=== PATIENT | female | born 1965 | race Caucasian/White ===

== ENCOUNTER 2017-06-24 08:39 | Outpatient (RCR) | payer OTHER, MEDICAID ==
[2017-05-19 14:38] LABS: BASOPHILS # (AUTO) 0.1 10^3/uL (0.0-0.1); BASOPHILS % (AUTO) 1 % (0-10); EOSINOPHILS # (AUTO) 0.5 10^3/uL (0.0-0.3); EOSINOPHILS % (AUTO) 6 % (0-10); LYMPHOCYTES # (AUTO) 1.7 X 10^3 (1.0-4.0); LYMPHOCYTES % (AUTO) 21 % (12-44); MEAN CORPUSCULAR HEMOGLOBIN 28 PG (25-34); MEAN CORPUSCULAR HGB CONC 31 G/DL (32-36); MEAN CORPUSCULAR VOLUME 90 FL (80-99); MEAN PLATELET VOLUME 11.3 FL (7.4-10.4); MONOCYTES # (AUTO) 0.6 X 10^3 (0.0-1.0); MONOCYTES % (AUTO) 7 % (0-12); NEUTROPHILS # (AUTO) 5.3 X 10^3 (1.8-7.8); NEUTROPHILS % (AUTO) 65 % (42-75); PLATELET COUNT 269 10^3/uL (130-400); RED BLOOD COUNT 3.97 10^6/uL (4.35-5.85); RED CELL DISTRIBUTION WIDTH 15.2 % (10.0-14.5); WHITE BLOOD COUNT 8.1 10^3/uL (4.3-11.0)
[2017-05-19 15:05] LABS: ALBUMIN 4.1 GM/DL (3.2-4.5); BILIRUBIN,TOTAL 0.3 MG/DL (0.1-1.0); CALCIUM 8.8 MG/DL (8.5-10.1); CREATININE SERUM 1.38 MG/DL (0.60-1.30); POTASSIUM 4.4 MMOL/L (3.6-5.0); TOTAL PROTEIN 6.9 GM/DL (6.4-8.2)
[2017-05-19 15:19] LABS: PEP REPORT SEE PATH REPORT
[2017-05-19 15:53] LABS: THYROID STIMULATING HORMONE 2.58 UIU/ML (0.35-4.94)
[2017-05-19 16:55] LABS: %SAT TOTAL IRON BINDING CAPIC 8 % (15-50); TIBC 616 ug/dL (280-380)
[2017-05-20 07:55] LABS: UIBC 567 ug/dL
[2017-05-22 11:19] LABS: CLIN PATHOLOGY REPORT FOOTNOTE; SERUM PROTEIN ELEC DETAIL L-17-0008910
[2017-05-24 07:38] LABS: IMMUNOFIX PATH REPORT NUMBER Complete (Complete)
[2017-06-19 12:52] LABS: BASOPHILS # (AUTO) 0.1 10^3/uL (0.0-0.1); BASOPHILS % (AUTO) 2 % (0-10); EOSINOPHILS # (AUTO) 0.5 10^3/uL (0.0-0.3); EOSINOPHILS % (AUTO) 7 % (0-10); LYMPHOCYTES # (AUTO) 1.6 X 10^3 (1.0-4.0); LYMPHOCYTES % (AUTO) 21 % (12-44); MEAN CORPUSCULAR HEMOGLOBIN 30 PG (25-34); MEAN CORPUSCULAR HGB CONC 31 G/DL (32-36); MEAN CORPUSCULAR VOLUME 95 FL (80-99); MEAN PLATELET VOLUME 12.1 FL (7.4-10.4); MONOCYTES # (AUTO) 0.5 X 10^3 (0.0-1.0); MONOCYTES % (AUTO) 6 % (0-12); NEUTROPHILS # (AUTO) 4.8 X 10^3 (1.8-7.8); NEUTROPHILS % (AUTO) 64 % (42-75); PLATELET COUNT 228 10^3/uL (130-400); RETICULOCYTE % 1.81 % (0.50-2.40); WHITE BLOOD COUNT 7.4 10^3/uL (4.3-11.0)
[2017-06-19 13:34] LABS: ALBUMIN 4.2 GM/DL (3.2-4.5); BILIRUBIN,TOTAL 0.3 MG/DL (0.1-1.0); CREATININE SERUM 1.14 MG/DL (0.60-1.30); POTASSIUM 4.9 MMOL/L (3.6-5.0); TOTAL PROTEIN 6.7 GM/DL (6.4-8.2)
[~2017-06-24 08:39] MED LIST: FERRIC CARBOXYMALTOSE (CANCER) 750 MG in NS (IVPB) CANCER CENTER 250 ML IV SCH
== END 2017-08-09 | disposition home or self-care (01) ==
LOC: ONC 08:39
PROVIDERS: ATTEND Internal Medicine Hematology & Oncology
DX: D50.9 Iron deficiency anemia, unspecified (principal)
CPT/HCPCS: 36415; 80053; 82728; 83540; 83883; 84155; 84165; 84443; 85025; 85045; 86334; 96365; 99213; 99214

== ENCOUNTER 2017-10-13 12:06 | Outpatient (RCR) | payer OTHER, MEDICAID ==
[2017-10-13 12:22] LABS: BASOPHILS # (AUTO) 0.1 10^3/uL (0.0-0.1); BASOPHILS % (AUTO) 1 % (0-10); EOSINOPHILS # (AUTO) 0.6 10^3/uL (0.0-0.3); EOSINOPHILS % (AUTO) 9 % (0-10); HEMATOCRIT 38 % (35-52); HEMOGLOBIN 12.5 G/DL (11.5-16.0); LYMPHOCYTES # (AUTO) 1.8 X 10^3 (1.0-4.0); LYMPHOCYTES % (AUTO) 25 % (12-44); MEAN CORPUSCULAR HEMOGLOBIN 33 PG (25-34); MEAN CORPUSCULAR HGB CONC 33 G/DL (32-36); MEAN CORPUSCULAR VOLUME 101 FL (80-99); MEAN PLATELET VOLUME 11.8 FL (7.4-10.4); MONOCYTES # (AUTO) 0.4 X 10^3 (0.0-1.0); MONOCYTES % (AUTO) 6 % (0-12); NEUTROPHILS # (AUTO) 4.2 X 10^3 (1.8-7.8); NEUTROPHILS % (AUTO) 59 % (42-75); PLATELET COUNT 214 10^3/uL (130-400); RED BLOOD COUNT 3.81 10^6/uL (4.35-5.85); RED CELL DISTRIBUTION WIDTH 13.1 % (10.0-14.5); WHITE BLOOD COUNT 7.1 10^3/uL (4.3-11.0)
[2017-10-13 12:41] LABS: ALBUMIN 4.1 GM/DL (3.2-4.5); BILIRUBIN,TOTAL 0.3 MG/DL (0.1-1.0); CALCIUM 8.6 MG/DL (8.5-10.1); CREATININE SERUM 1.34 MG/DL (0.60-1.30); POTASSIUM 4.3 MMOL/L (3.6-5.0); TOTAL PROTEIN 6.8 GM/DL (6.4-8.2)
== END 2018-01-11 | disposition home or self-care (01) ==
LOC: ONC 12:06
PROVIDERS: ATTEND Internal Medicine Hematology & Oncology
DX: D50.9 Iron deficiency anemia, unspecified (principal)
CPT/HCPCS: 36415; 80053; 82728; 85025; 99213

== ENCOUNTER 2018-02-12 12:41 | Outpatient (RCR) | payer MEDICARE, MEDICAID ==
[2018-02-12 12:54] LABS: BASOPHILS # (AUTO) 0.1 10^3/uL (0.0-0.1); BASOPHILS % (AUTO) 1 % (0-10); EOSINOPHILS % (AUTO) 11 % (0-10); HEMATOCRIT 37 % (35-52); HEMOGLOBIN 12.4 G/DL (11.5-16.0); LYMPHOCYTES % (AUTO) 22 % (12-44); MEAN CORPUSCULAR HEMOGLOBIN 33 PG (25-34); MEAN CORPUSCULAR HGB CONC 34 G/DL (32-36); MEAN CORPUSCULAR VOLUME 98 FL (80-99); MONOCYTES # (AUTO) 0.5 X 10^3 (0.0-1.0); MONOCYTES % (AUTO) 5 % (0-12); NEUTROPHILS # (AUTO) 5.5 X 10^3 (1.8-7.8); NEUTROPHILS % (AUTO) 61 % (42-75); PLATELET COUNT 177 10^3/uL (130-400); RED BLOOD COUNT 3.73 10^6/uL (4.35-5.85); RED CELL DISTRIBUTION WIDTH 13.5 % (10.0-14.5)
[2018-02-12 13:10] LABS: ALBUMIN 4.2 GM/DL (3.2-4.5); BILIRUBIN,TOTAL 0.3 MG/DL (0.1-1.0); CALCIUM 8.9 MG/DL (8.5-10.1); CREATININE SERUM 1.13 MG/DL (0.60-1.30); POTASSIUM 4.1 MMOL/L (3.6-5.0); TOTAL PROTEIN 6.6 GM/DL (6.4-8.2)
== END 2018-05-13 | disposition home or self-care (01) ==
LOC: ONC 12:41
PROVIDERS: ATTEND Internal Medicine Hematology & Oncology
DX: D50.9 Iron deficiency anemia, unspecified (principal); E11.22 Type 2 diabetes mellitus with diabetic chronic kidney disease; N18.3 Chronic kidney disease, stage 3 (moderate); E78.5 Hyperlipidemia, unspecified; E55.9 Vitamin D deficiency, unspecified; K21.9 Gastro-esophageal reflux disease without esophagitis; K59.00 Constipation, unspecified; Z79.84 Long term (current) use of oral hypoglycemic drugs; Z79.899 Other long term (current) drug therapy
CPT/HCPCS: 36415; 80053; 82728; 85025; 99213

== ENCOUNTER 2018-06-18 12:46 | Outpatient (RCR) | payer MEDICARE, MEDICAID ==
[2018-06-18 14:08] LABS: BASOPHILS # (AUTO) 0.1 10^3/uL (0.0-0.1); BASOPHILS % (AUTO) 1 % (0-10); EOSINOPHILS # (AUTO) 0.8 10^3/uL (0.0-0.3); EOSINOPHILS % (AUTO) 9 % (0-10); HEMATOCRIT 40 % (35-52); HEMOGLOBIN 13.4 G/DL (11.5-16.0); LYMPHOCYTES % (AUTO) 21 % (12-44); MEAN CORPUSCULAR HEMOGLOBIN 33 PG (25-34); MEAN CORPUSCULAR HGB CONC 33 G/DL (32-36); MEAN CORPUSCULAR VOLUME 98 FL (80-99); MEAN PLATELET VOLUME 12.2 FL (7.4-10.4); MONOCYTES # (AUTO) 0.5 X 10^3 (0.0-1.0); MONOCYTES % (AUTO) 6 % (0-12); NEUTROPHILS # (AUTO) 6.2 X 10^3 (1.8-7.8); NEUTROPHILS % (AUTO) 64 % (42-75); PLATELET COUNT 215 10^3/uL (130-400); RED BLOOD COUNT 4.09 10^6/uL (4.35-5.85); RED CELL DISTRIBUTION WIDTH 13.9 % (10.0-14.5); WHITE BLOOD COUNT 9.7 10^3/uL (4.3-11.0)
[2018-06-18 14:33] LABS: ALBUMIN 4.4 GM/DL (3.2-4.5); BILIRUBIN,TOTAL 0.3 MG/DL (0.1-1.0); CALCIUM 9.2 MG/DL (8.5-10.1); CREATININE SERUM 1.04 MG/DL (0.60-1.30); POTASSIUM 4.3 MMOL/L (3.6-5.0); TOTAL PROTEIN 6.8 GM/DL (6.4-8.2)
== END 2018-07-10 | disposition home or self-care (01) ==
LOC: ONC 12:46
PROVIDERS: ATTEND Internal Medicine Hematology & Oncology
DX: D50.9 Iron deficiency anemia, unspecified (principal); E11.22 Type 2 diabetes mellitus with diabetic chronic kidney disease; N18.3 Chronic kidney disease, stage 3 (moderate); E78.5 Hyperlipidemia, unspecified; E55.9 Vitamin D deficiency, unspecified; K21.9 Gastro-esophageal reflux disease without esophagitis; K59.00 Constipation, unspecified; Z79.84 Long term (current) use of oral hypoglycemic drugs; Z79.899 Other long term (current) drug therapy
CPT/HCPCS: 80053; 82728; 85025; 99213

== ENCOUNTER 2018-09-17 12:57 | Outpatient (RCR) | payer MEDICARE, MEDICAID ==
[2018-09-17 13:09] LABS: BASOPHILS # (AUTO) 0.1 10^3/uL (0.0-0.1); BASOPHILS % (AUTO) 1 % (0-10); EOSINOPHILS # (AUTO) 0.7 10^3/uL (0.0-0.3); EOSINOPHILS % (AUTO) 6 % (0-10); HEMATOCRIT 41 % (35-52); HEMOGLOBIN 13.8 G/DL (11.5-16.0); LYMPHOCYTES # (AUTO) 2.9 X 10^3 (1.0-4.0); LYMPHOCYTES % (AUTO) 26 % (12-44); MEAN CORPUSCULAR HEMOGLOBIN 33 PG (25-34); MEAN CORPUSCULAR HGB CONC 33 G/DL (32-36); MEAN CORPUSCULAR VOLUME 98 FL (80-99); MEAN PLATELET VOLUME 11.3 FL (7.4-10.4); MONOCYTES # (AUTO) 0.8 X 10^3 (0.0-1.0); MONOCYTES % (AUTO) 7 % (0-12); NEUTROPHILS # (AUTO) 6.5 X 10^3 (1.8-7.8); NEUTROPHILS % (AUTO) 60 % (42-75); PLATELET COUNT 217 10^3/uL (130-400); RED CELL DISTRIBUTION WIDTH 13.9 % (10.0-14.5); WHITE BLOOD COUNT 10.9 10^3/uL (4.3-11.0)
[2018-09-17 13:30] LABS: ALBUMIN 4.5 GM/DL (3.2-4.5); BILIRUBIN,TOTAL 0.2 MG/DL (0.1-1.0); CALCIUM 9.5 MG/DL (8.5-10.1); CREATININE SERUM 1.06 MG/DL (0.60-1.30); POTASSIUM 4.2 MMOL/L (3.6-5.0); TOTAL PROTEIN 7.4 GM/DL (6.4-8.2)
== END 2018-12-16 | disposition home or self-care (01) ==
LOC: ONC 12:57
PROVIDERS: ATTEND Internal Medicine Hematology & Oncology
DX: D50.9 Iron deficiency anemia, unspecified (principal); E11.22 Type 2 diabetes mellitus with diabetic chronic kidney disease; N18.3 Chronic kidney disease, stage 3 (moderate); E78.5 Hyperlipidemia, unspecified; E55.9 Vitamin D deficiency, unspecified; K21.9 Gastro-esophageal reflux disease without esophagitis; K59.00 Constipation, unspecified; Z79.84 Long term (current) use of oral hypoglycemic drugs; Z79.899 Other long term (current) drug therapy
CPT/HCPCS: 36415; 80053; 82728; 85025; 99213

== ENCOUNTER 2020-11-22 09:48 | Emergency (ER) | payer MEDICARE, MEDICAID ==
[~2020-11-22] VITALS: Ht 162 cm; Wt 99.7 kg
[2020-11-22 10:16] VITALS: BP 140/90
--- NOTE | 2020-11-22 10:23 | NUR ---
DPOA - patient's mother - Brittney wilkinson [phone]. Per Brittney, patient's BS fasting highest has been 122, patient has been running low grade temp, has not been drinking much and has had poor appetite. Pt has been taking immodium and pepto bismol for diarrhea. Pt has history of latent TB and was on isonazidand pyridoxine for 9 months started 11/16/18, discontinued on 08/15.
[2020-11-22] MEDS ORDERED: FAMOTIDINE 20MG/2ML IV (PEPCID) IV STA (10:36)
--- NOTE | 2020-11-22 10:44 | ED Abdominal Pain ---
General Chief Complaint: Abdominal/GI Problems Stated Complaint: COVID+, GI ISSUES Nursing Triage Note: Pt reports testing positive for COVID on 11/13. Pt c/o diarrhea and abd pain, some SOA. Pt reports minimal appetite and stating she think she may be dehydrated. Pt is type 2 diabetic. Sepsis Screen: Possible Severe Sepsis Risk Source of Information: Patient, Family (mom dpoa) Exam Limitations: No Limitations History of Present Illness Date Seen by Provider: Nov 22, 2020 Time Seen by Provider: 10:20 Initial Comments Patient presents ER by private conveyance from home with chief complaint she is having some nausea vomiting and upset stomach with epigastric abdominal discomfort. She has had cholecystectomy appendectomy hysterectomy. She was diagnosed with Covid [address] Garcia. She has not been anywhere since then. She does not have anything for nausea. She has her mother who is also her DPOA and caregiver. She has had fevers but no diarrhea. Poor appetite and poor fluid intake for the past several days. Not a smoker. No history of lung disease. Mild shortness of air. She does wear a CPAP for MATIAS at night. No oxygen. Allergies and Home Medications Allergies Coded Allergies: NSAIDS (Non-Steroidal Anti-Inflamma (Verified Allergy, Unknown, 11/22/20) Penicillins (Verified Allergy, Unknown, 11/22/20) Sulfa (Sulfonamide Antibiotics) (Verified Allergy, Unknown, 11/22/20) azithromycin (Verified Allergy, Unknown, 11/22/20) fluconazole (Verified Allergy, Unknown, 11/22/20) Home Medications Dexamethasone 6 Mg Tablet, 6 MG PO DAILY Prescribed by: ERIKA GRIFFITHS on 11/22/20 1245 Ondansetron 4 Mg Tab.rapdis, 4-8 MG PO Q6H PRN for NAUSEA/VOMITING Prescribed by: ERIKA GRIFFITHS on 11/22/20 1245 Pantoprazole Sodium 40 Mg Tablet.dr, 40 MG PO DAILY Prescribed by: ERIKA GRIFFITHS on 11/22/20 1245 Promethazine HCl 25 Mg Tablet, 25 MG PO Q6H PRN for NAUSEA/VOMITING Prescribed by: ERIKA GRIFFITHS on 11/22/20 1245 Sucralfate 1 Gm Tablet, 1 GM PO QIDACHS Prescribed by: ERIKA GRIFFITHS on 11/22/20 1245 [oxygen] , 2 L NA DAILY PRN for as directed 2 to 6 L by nasal cannula as necessary to keep Sp02 above 94% Prescribed by: ERIKA GRIFFITHS on 11/22/20 1252 Patient Home Medication List Home Medication List Reviewed: Yes Review of Systems Review of Systems Constitutional: chills, fever, malaise, weakness EENTM: No Blurred Vision, No Double Vision Respiratory: Cough (Nonproductive), Shortness of Air; Denies Wheezing Cardiovascular: Denies Chest Pain, Denies Lightheadedness Gastrointestinal: See HPI, Abdominal Pain (Epigastric); Denies Constipated, Denies Diarrhea; Nausea, Poor Appetite, Poor Fluid Intake, Vomiting Genitourinary: Denies Burning, Denies Discharge Musculoskeletal: No back pain, No joint pain Skin: No pruritus, No rash Psychiatric/Neurological: Denies Anxiety, Denies Depressed All Other Systems Reviewed Negative Unless Noted: Yes Past Rwogesk-Thwqvt-Tyhkcg Hx Patient Social History Alcohol Use: Denies Use Smoking Status: Never a Smoker Recent Infectious Disease Expo: No Recent Hopitalizations: No Seasonal Allergies Seasonal Allergies: No Past Medical History Surgeries: Yes (cleft repair, bilat knee replacement, carpal tunnel ) Appendectomy, Gallbladder, Hysterectomy, Joint Replacement, Orthopedic Respiratory: Yes Sleep Apnea, Tuberculosis Currently Using CPAP: Yes (at night) Cardiac: Yes High Cholesterol, Hypertension Neurological: No Genitourinary: No Gastrointestinal: Yes Gastroesophageal Reflux, Irritable Bowel Musculoskeletal: No Endocrine: Yes Diabetes, Non-Insulin dep HEENT: No Cancer: No Psychosocial: No Integumentary: No Blood Disorders: No Physical Exam Vital Signs Vital Signs - First Documented 11/22/20 10:16 Temp 37.9 Pulse 112 Resp 22 B/P (MAP) 140/90 (107) Pulse Ox 90 O2 Delivery Room Air Capillary Refill : Less Than 3 Seconds Height/Weight/BMI Height: '" Weight: lbs. oz. kg; 37.00 BMI Method: General Appearance: WD/WN, mild distress HEENT: PERRL/EOMI, normal ENT inspection, TMs normal; No pharynx normal (Dry oral mucosa) Neck: non-tender, full range of motion, normal inspection Respiratory: lungs clear, normal breath sounds, no accessory muscle use, respiratory distress (Mild to moderate with oxygen sats 89% after transferring from wheelchair to bed on room air.) Gastrointestinal: normal bowel sounds, soft, tenderness (Epigastric without Pereira sign, McBurney's point tenderness, mesenteric signs.) Neurologic/Psychiatric: alert, normal mood/affect, oriented x 3 Skin: normal color, warm/dry Progress/Results/Core Measures Results/Orders Lab Results Laboratory Tests Test 11/22/20 10:40 11/22/20 11:22 11/22/20 11:40 Range/Units White Blood Count 5.7 4.3-11.0 10^3/uL Red Blood Count 3.85 3.80-5.11 10^6/uL Hemoglobin 11.8 11.5-16.0 g/dL Hematocrit 35 35-52 % Mean Corpuscular Volume 91 80-99 fL Mean Corpuscular Hemoglobin 31 25-34 pg Mean Corpuscular Hemoglobin Concent 34 32-36 g/dL Red Cell Distribution Width 15.2 H 10.0-14.5 % Platelet Count 171 130-400 10^3/uL Mean Platelet Volume 12.0 9.0-12.2 fL Immature Granulocyte % (Auto) 1 % Neutrophils (%) (Auto) 81 H 42-75 % Lymphocytes (%) (Auto) 10 L 12-44 % Monocytes (%) (Auto) 7 0-12 % Eosinophils (%) (Auto) 0 0-10 % Basophils (%) (Auto) 0 0-10 % Neutrophils # (Auto) 4.6 1.8-7.8 10^3/uL Lymphocytes # (Auto) 0.6 L 1.0-4.0 10^3/uL Monocytes # (Auto) 0.4 0.0-1.0 10^3/uL Eosinophils # (Auto) 0.0 0.0-0.3 10^3/uL Basophils # (Auto) 0.0 0.0-0.1 10^3/uL Immature Granulocyte # (Auto) 0.1 0.0-0.1 10^3/uL Sodium Level 136 135-145 MMOL/L Potassium Level 3.9 3.6-5.0 MMOL/L Chloride Level 98 98-107 MMOL/L Carbon Dioxide Level 23 21-32 MMOL/L Anion Gap 15 H 5-14 MMOL/L Blood Urea Nitrogen 23 H 7-18 MG/DL Creatinine 1.32 H 0.60-1.30 MG/DL Estimat Glomerular Filtration Rate 42 BUN/Creatinine Ratio 17 Glucose Level 130 H 70-105 MG/DL Calcium Level 7.3 L 8.5-10.1 MG/DL Corrected Calcium 7.4 L 8.5-10.1 MG/DL Total Bilirubin 0.3 0.1-1.0 MG/DL Aspartate Amino Transf (AST/SGOT) 17 5-34 U/L Alanine Aminotransferase (ALT/SGPT) 16 0-55 U/L Alkaline Phosphatase 83 40-136 U/L C-Reactive Protein High Sensitivity 4.90 H 0.00-0.50 MG/DL Total Protein 6.9 6.4-8.2 GM/DL Albumin 3.9 3.2-4.5 GM/DL Lipase 17 8-78 U/L Procalcitonin 0.12 H <0.10 NG/ML Blood Gas Puncture Site LEFT RAD Blood Gas Patient Temperature 37.9 Arterial Blood pH 7.45 H 7.37-7.43 Arterial Blood Partial Pressure CO2 37 35-45 MMHG Arterial Blood Partial Pressure O2 71 L 79-93 MMHG Arterial Blood HCO3 25 23-27 MMOL/L Arterial Blood Total CO2 38.3 H 21.0-31.0 MMOL/L Arterial Blood Oxygen Saturation 95 94-100 % Arterial Blood Base Excess 1.2 -2.5-2.5 MMOL/L Cullen Test YES-POS Blood Gas Ventilator Setting NO Blood Gas Inspired Oxygen 3 L Urine Color YELLOW Urine Clarity CLEAR Urine pH 6.0 5-9 Urine Specific Mitchell[place] 1.015 L 1.016-1.022 Urine Protein TRACE H NEGATIVE Urine Glucose (UA) NEGATIVE NEGATIVE Urine Ketones NEGATIVE NEGATIVE Urine Nitrite NEGATIVE NEGATIVE Urine Bilirubin NEGATIVE NEGATIVE Urine Urobilinogen 0.2 < = 1.0 MG/DL Urine Leukocyte Esterase NEGATIVE NEGATIVE Urine RBC (Auto) NEGATIVE NEGATIVE Urine RBC NONE /HPF Urine WBC 0-2 /HPF Urine Squamous Epithelial Cells 2-5 /HPF Urine Crystals NONE /LPF Urine Bacteria TRACE /HPF Urine Casts PRESENT /LPF Urine Hyaline Casts 0-2 H /LPF Urine Mucus NEGATIVE /LPF Urine Culture Indicated NO My Orders Orders - ERIKA GRIFFITHS Covid-19 External Lab Results (11/22/20 10:32) Cbc With Automated Diff (11/22/20 10:36) Comprehensive Metabolic Panel (11/22/20 10:36) Hs C Reactive Protein (11/22/20 10:36) Lipase (11/22/20 10:36) Procalcitonin (Pct) (11/22/20 10:36) Abg Ph (11/22/20 10:36) Lactated Ringers (Lr 1000 Ml Iv Solution (11/22/20 10:45) Ondansetron Injection (Zofran Injectio (11/22/20 10:45) Lidocaine 2% Viscous 15 Ml (Xylocaine Vi (11/22/20 10:45) Antacid Suspension (Mylanta Suspension (11/22/20 10:45) Famotidine Injection (Pepcid Injection) (11/22/20 10:36) Ua Culture If Indicated (11/22/20 10:36) Lactated Ringers (Lr 1000 Ml Iv Solution (11/22/20 10:45) Arterial Blood Gas (11/22/20 11:32) Dexamethasone Injection (Decadron Inje (11/22/20 11:45) Chest 1 View, Ap/Pa Only (11/22/20 12:25) Lactated Ringers (Lr 1000 Ml Iv Solution (11/22/20 15:30) Cho 75g/M 0snack (21-2400 Arturo) (11/22/20 Lunch) Medications Given in ED Current Medications Medications Dose Ordered Sig/Norman Route Start Time Stop Time Status Last Admin Dose Admin Al Hydrox/Mg Hydrox/Simethicone 30 ml ONCE ONCE PO 11/22/20 10:45 11/22/20 10:46 DC 11/22/20 10:58 30 ML Lactated Ringer's 1,000 ml @ 0 mls/hr Q0M ONCE IV 11/22/20 10:45 11/22/20 10:46 DC 11/22/20 11:09 999 MLS/HR Lactated Ringer's 1,000 ml @ 0 mls/hr Q0M ONCE IV 11/22/20 10:45 11/22/20 10:46 DC 11/22/20 15:36 999 MLS/HR Lidocaine HCl 15 ml ONCE ONCE PO 11/22/20 10:45 11/22/20 10:46 DC 11/22/20 10:58 15 ML Ondansetron HCl 8 mg ONCE ONCE IVP 11/22/20 10:45 11/22/20 10:46 DC 11/22/20 11:00 8 MG Vital Signs/I&O 11/22/20 10:16 Temp 37.9 Pulse 112 Resp 22 B/P (MAP) 140/90 (107) Pulse Ox 90 O2 Delivery Room Air Blood Pressure Mean: 107 Progress Progress Note #1: Time: 10:43 Progress Note Plan to get her nausea under control gave her 2 L of fluids and a GI cocktail to see if that helps her epigastric pain. She is requiring some oxygen so will put her on 2 L which might help her nausea as well. We will see if we get her qualified for home O2 which should not be difficult since she already has desatted to 89% just transferring. We will get an x-ray and if there is no signs of bacterial pneumonia or other worsening labs then we can send her home with a concentrator. Progress Note #2: Time: 12:29 Progress Note On standing the patient's oxygen sats could easily be brought down to 88% with minimal effort. We gave her a GI cocktail and she said her pain went away. With some nausea medicine her nausea got better. She already has some on dansetron so give her a prescription for some more and try and set her up for outpatient oxygen. She is okay with going home. Discussed the case with her mother who is in agreement with the plan. She is staying in [place] with her parents until her symptoms improve so we will set her up with a local oxygen company. Progress Note #3: Time: 13:42 Progress Note Local O2 company could not use her insurance so we are attempting to use [facility] which should be able to utilize her insurance. Documentation was faxed. Progress Note #4: Time: 14:17 Progress Note Rashad did receive the packet and can probably provide her with a concentrator however they need a few more items faxed to them. These were sent and they said they will call us when they are ready to meet her at the house. Patient is resting comfortably without concern. Progress Note #5: Time: 15:55 Progress Note Rashad advises they will have someone at her house and [place] in 40 minutes. Nursing staff is calling family for a ride home. Diagnostic Imaging Diagonstic Imaging: Xray Plain Films/CT/US/NM/MRI: chest Comments NAME: [facility]LY [facility] REC#: [id number] PT STATUS: REG ER : 1965 PHYSICIAN: ERIKA GRIFFITHS MD ADMIT DATE: 11/22/20/ER Draft Date of Exam:11/22/20 CHEST 1 VIEW, AP/PA ONLY EXAM: CHEST 1 VIEW, AP/PA ONLY INDICATION: Shortness of air. Positive COVID. COMPARISON: None. FINDINGS: Patchy airspace opacities in both lungs, greater on the left. No large pleural effusion or pneumothorax. Normal heart size and central pulmonary vascularity. No acute osseous findings. IMPRESSION: Patchy airspace opacities, greater on the left, compatible with reported COVID diagnosis. Dictated on workstation # [id number] Dict: 11/22/20 1317 Trans: 11/22/20 1320 [id number] Interpreted by: RAMANDEEP DAVIES MD Electronically signed by: Reviewed: Reviewed by Me Departure Impression Primary Impression: COVID-19 Additional Impressions: Gastritis Qualified Codes: K29.00 - Acute gastritis without bleeding Nausea alone Hypoxemia Disposition: HOME, SELF-CARE Condition: Improved Departure-Patient Inst. Decision time for Depature: 12:39 Referrals: PONCE GOULD (PCP/Family) Primary Care Physician Patient Instructions: Gastritis (DC), Coronavirus Disease 2019 (COVID-19) Ove rview, Nausea and Vomiting, Adult ED Add. Discharge Instructions: If you have nausea you may take 1 tablet of ondansetron under the tongue every 6 hours. If it does not help your symptoms in 30 minutes then you may take a second tablet. If you are still having nausea you can use 1 tablet of Phenergan every 6 hours as necessary. This will cause some mild drowsiness. Drink lots of fluids. Obtain a pulse oximeter and to wear oxygen between 2 and 6 L to keep your oxygen saturations consistently above 94%. If your oxygen sats will not stay above 94% despite oxygen then you should return to the nearest ER. Dexamethasone 6 mg daily for 10 days. If you experience belly pain again then you should use Maalox, Tums, Rolaids etc. for symptoms. Pantoprazole 40 mg daily for the next 4 weeks to reduce stomach acid. Sucralfate will help line the stomach and esophagus to protect it so it can heal. 1 tablet Sucralfate 30 minutes prior to meals and at bedtime for 2 weeks. All discharge instructions reviewed with patient and/or family. Voiced understanding. Scripts [oxygen] No Conflict Check 2 L NA DAILY PRN for as directed, #1 EACH 0 Refills 2 to 6 L by nasal cannula as necessary to keep Sp02 above 94% Prov: ERIKA GRIFFITHS 11/22/20 Dexamethasone (Dexamethasone) 6 Mg Tablet 6 MG PO DAILY for 10 Days, #10 TAB 0 Refills Prov: ERIKA GRIFFITHS 11/22/20 Promethazine HCl (Promethazine Tablet) 25 Mg Tablet 25 MG PO Q6H PRN for NAUSEA/VOMITING, #15 TAB 0 Refills Prov: ERIKA GRIFFITHS 11/22/20 Ondansetron (Ondansetron Odt) 4 Mg Tab.rapdis 4-8 MG PO Q6H PRN for NAUSEA/VOMITING, #15 TAB 0 Refills Prov: ERIKA GRIFFITHS 11/22/20 Sucralfate (Carafate) 1 Gm Tablet 1 GM PO QIDACHS for 14 Days, #56 TAB 0 Refills Prov: ERIKA GRIFFITHS 11/22/20 Pantoprazole Sodium (Pantoprazole Sodium) 40 Mg Tablet.dr 40 MG PO DAILY for 30 Days, #30 TAB 0 Refills Prov: ERIKA GRIFFITHS 11/22/20 ERIKA GRIFFITHS Nov 22, 2020 10:44
[2020-11-22] MEDS ORDERED: ANTACID SUSP 30 ML UDC (MYLANTA) PO ONE (10:45)
[2020-11-22] MEDS ORDERED: LIDOCAINE 2% VISCOUS 15 ML UDC PO ONE (10:45)
[2020-11-22] MEDS ORDERED: ONDANSETRON 4 MG/2 ML (SDV) Z0FRAN IVP ONE (10:45)
[2020-11-22] MEDS ORDERED: LACTATED RINGERS 1,000 ML IV ONE ×3 (10:45→15:30)
[2020-11-22 10:56] LABS: BASOPHILS % (AUTO) 0 % (0-10); EOSINOPHILS % (AUTO) 0 % (0-10); HEMATOCRIT 35 % (35-52); HEMOGLOBIN 11.8 g/dL (11.5-16.0); LYMPHOCYTES # (AUTO) 0.6 10^3/uL (1.0-4.0); LYMPHOCYTES % (AUTO) 10 % (12-44); MEAN CORPUSCULAR HEMOGLOBIN 31 pg (25-34); MEAN CORPUSCULAR HGB CONC 34 g/dL (32-36); MEAN CORPUSCULAR VOLUME 91 fL (80-99); MONOCYTES # (AUTO) 0.4 10^3/uL (0.0-1.0); MONOCYTES % (AUTO) 7 % (0-12); NEUTROPHILS # (AUTO) 4.6 10^3/uL (1.8-7.8); NEUTROPHILS % (AUTO) 81 % (42-75); PLATELET COUNT 171 10^3/uL (130-400); WHITE BLOOD COUNT 5.7 10^3/uL (4.3-11.0)
[2020-11-22 11:14] LABS: ALBUMIN 3.9 GM/DL (3.2-4.5); POTASSIUM 3.9 MMOL/L (3.6-5.0)
[2020-11-22 11:15] LABS: CALCIUM 7.3 MG/DL (8.5-10.1)
[2020-11-22 11:16] LABS: TOTAL PROTEIN 6.9 GM/DL (6.4-8.2)
[2020-11-22 11:18] LABS: BILIRUBIN,TOTAL 0.3 MG/DL (0.1-1.0)
[2020-11-22 11:20] LABS: CREATININE SERUM 1.32 MG/DL (0.60-1.30)
[2020-11-22 11:54] LABS: BILIRUBIN,URINE NEGATIVE (NEGATIVE); CLARITY,URINE CLEAR; COLOR,URINE YELLOW; GLUCOSE, URINE (UA) NEGATIVE (NEGATIVE); KETONES,URINE NEGATIVE (NEGATIVE); LEUKOCYTE ESTERASE ,URINE NEGATIVE (NEGATIVE); NITRITE,URINE NEGATIVE (NEGATIVE); PROTEIN,URINE TRACE (NEGATIVE)
[2020-11-22 12:02] LABS: BACTERIA,URINE TRACE /HPF; HYALINE CASTS, URINE 0-2 /LPF; WBC,URINE 0-2 /HPF
[2020-11-22 12:26] LABS: ABG BASE EXCESS 1.2 MMOL/L (-2.5-2.5); ABG OXYGEN SATURATION 95 % (94-100); ABG PCO2 37 MMHG (35-45); ABG PH 7.45 (7.37-7.43); ABG PO2 71 MMHG (79-93); ABG TCO2 38.3 MMOL/L (21.0-31.0); ALLENS TEST YES-POS
[2020-11-22 12:27] LABS: INSPIRED O2 3 L; PATIENT TEMP 37.9; VENTILATOR NO
[2020-11-22] MEDS ORDERED: DEXA6TAB PO (12:45)
[2020-11-22] MEDS ORDERED: ONDA4TAB11 PO (12:45)
[2020-11-22] MEDS ORDERED: PANT40TA52 PO (12:45)
[2020-11-22] MEDS ORDERED: PROM25TA14 PO (12:45)
[2020-11-22] MEDS ORDERED: SUCR1TAB36 PO (12:45)
[2020-11-22] MEDS ORDERED: oxygen (12:52)
--- NOTE | 2020-11-22 13:20 | Diagnostic Imaging Report ---
EXAM: CHEST 1 VIEW, AP/PA ONLY INDICATION: Shortness of air. Positive COVID. COMPARISON: None. FINDINGS: Patchy airspace opacities in both lungs, greater on the left. No large pleural effusion or pneumothorax. Normal heart size and central pulmonary vascularity. No acute osseous findings. IMPRESSION: Patchy airspace opacities, greater on the left, compatible with reported COVID diagnosis. Dictated by: Dictated on workstation # [id number]
== END 2020-11-22 16:31 | disposition home or self-care (01) ==
LOC: EDUNIT# 09:48 → ER 09:51
DX: U07.1 COVID-19 (principal); K29.70 Gastritis, unspecified, without bleeding; R11.2 Nausea with vomiting, unspecified; R09.02 Hypoxemia; K21.9 Gastro-esophageal reflux disease without esophagitis; Z88.6 Allergy status to analgesic agent; Z88.0 Allergy status to penicillin; Z88.2 Allergy status to sulfonamides; Z88.1 Allergy status to other antibiotic agents; Z88.8 Allergy status to other drugs, medicaments and biological substances
CPT/HCPCS: 36415; 71045; 80053; 81000; 82800; 82805; 83690; 84145; 85025; 86141